=== PATIENT | male | born 1955 | race Caucasian/White ===

== ENCOUNTER → 2017-03-03 | Outpatient (CLI) | payer BC | END | disposition home or self-care (01) | LOC: RES 03-01 13:00 | DX: R06.09 Other forms of dyspnea (principal); R06.2 Wheezing | CPT/HCPCS: 94070; 94726; 94729 ==

== ENCOUNTER 2017-09-17 05:38 | Emergency (ER) | payer BC ==
[~2017-09-17] VITALS: Ht 172.7 cm; Wt 91.5 kg
[2017-09-17 06:35] LABS: HEMATOCRIT 46.2 % (38.0-50.0); HEMOGLOBIN 15.6 G/DL (12.5-16.6); MCH 29.8 PG (29.0-34.0); MCHC 33.8 G/DL (30.0-36.0); MCV 88.2 FL (86-99); RBC DIS.WIDTH-CV 12.6 % (11.8-14.6); RBC DIS.WIDTH-SD 40.7 % (39-53); RED BLOOD COUNT 5.24 M/uL (4.00-5.50); WHITE BLOOD COUNT 10.2 K/uL (4.1-10.2)
[2017-09-17 07:08] LABS: TROP-I INTERPRETATION NEGATIVE; TROPONIN-I < 0.01 ng/mL (0.0-0.30)
[2017-09-17 07:17] LABS: CHLORIDE 104 MEQ/L (99-109); POTASSIUM 4.5 MEQ/L (3.7-5.4); SODIUM 135 MEQ/L (136-147)
[2017-09-17 07:23] LABS: CREATININE 1.2 MG/DL (0.6-1.3); GFR ESTIMATE (CALCULATED) > 59 mL/min/ (58.99-99999); GLUCOSE 303 mg/dL (70-99); UREA NITROGEN (BUN) 17 mg/dL (9-23)
[2017-09-17 07:43] LABS: PLAT.SUFFICIENCY ADEQUATE; PLATELET COUNT 178 K/uL (156-360)
[2017-09-17] MEDS ORDERED: TAMIFLU75 MG PO (07:57)
[2017-09-17 08:31] VITALS: BP 124/73
== END 2017-09-17 08:37 | disposition home or self-care (01) ==
LOC: EME 05:38
DX: J10.1 Influenza due to other identified influenza virus with other respiratory manifestations (principal); R07.89 Other chest pain; I10 Essential (primary) hypertension; E11.9 Type 2 diabetes mellitus without complications
CPT/HCPCS: 71046; 80048; 84484; 85027; 87502; 93005; 99281; 99284

== ENCOUNTER → 2017-10-01 | Outpatient (CLI) | payer BC ==
[~2017-10-01] VITALS: Ht 172.7 cm; Wt 89.8 kg
[~2017-10-01] MED LIST: ACTOS30 MG PO; GLUCOPHAGE500 MG PO; GLUCOTROL5 MG PO; LO-DOSE ASPIRIN81 M2 PO; METFORMIN HCL1000 M3 PO; MEVACOR20 MG PO; PRANDIN2 MG PO; PRINZIDE 20-121 EACH PO; TAMIFLU75 MG PO
== END | disposition home or self-care (01) ==
LOC: AMB 09:19
PROVIDERS: Internal Medicine
DX: Z12.11 Encounter for screening for malignant neoplasm of colon (principal); D12.3 Benign neoplasm of transverse colon; K64.8 Other hemorrhoids; K29.70 Gastritis, unspecified, without bleeding; R14.2 Eructation; R06.6 Hiccough; E11.9 Type 2 diabetes mellitus without complications; K52.9 Noninfective gastroenteritis and colitis, unspecified; Z79.82 Long term (current) use of aspirin; Z80.0 Family history of malignant neoplasm of digestive organs; Z82.49 Family history of ischemic heart disease and other diseases of the circulatory system; Z83.3 Family history of diabetes mellitus; Z80.42 Family history of malignant neoplasm of prostate; Z83.49 Family history of other endocrine, nutritional and metabolic diseases
CPT/HCPCS: 82948; 88305; 88342 TC; J2250

== ENCOUNTER 2017-11-12 11:12 | Day surgery (SDC) | payer BC ==
[~2017-11-12] VITALS: Ht 172.7 cm; Wt 87.1 kg
[2017-11-12 11:47] VITALS: BP 145/74
[2017-11-12] MEDS ORDERED: HYDROCODON-ACE1 EAC7 PO (16:12)
[2017-11-12 17:40] VITALS: BP 172/75
[2017-11-12 18:35] VITALS: BP 157/75
== END 2017-11-12 18:45 | disposition home or self-care (01) ==
LOC: SDC 11:12
PROVIDERS: Student in an Organized Health Care Education/Training Program
DX: K42.9 Umbilical hernia without obstruction or gangrene (principal); D17.79 Benign lipomatous neoplasm of other sites; I10 Essential (primary) hypertension; E11.69 Type 2 diabetes mellitus with other specified complication; E78.6 Lipoprotein deficiency; E78.1 Pure hyperglyceridemia; E66.9 Obesity, unspecified; Z68.31 Body mass index [BMI] 31.0-31.9, adult; Z86.010 Personal history of colon polyps; Z79.82 Long term (current) use of aspirin; Z79.84 Long term (current) use of oral hypoglycemic drugs; Z82.49 Family history of ischemic heart disease and other diseases of the circulatory system; Z83.3 Family history of diabetes mellitus; Z80.0 Family history of malignant neoplasm of digestive organs; Z80.42 Family history of malignant neoplasm of prostate; Z83.49 Family history of other endocrine, nutritional and metabolic diseases; Z82.0 Family history of epilepsy and other diseases of the nervous system
CPT/HCPCS: 82948; 88304; C1781; J0131; J0690; J1885; J2250; J2370; J2405; J2710; J2765; J2795; J3010; J7643; S0020